=== PATIENT | female | born 1980 | race Two or more races ===

== ENCOUNTER 2020-11-11 20:06 | Emergency (ER) | payer SELFPAY ==
[~2020-11-11] VITALS: Ht 154.9 cm; Wt 81.6 kg
[2020-11-11 20:28] VITALS: BP 117/73
--- NOTE | 2020-11-11 20:28 | NUR ---
BIBSELF C/O RT BIG TOE PAIN X 2 DAYS. TOOK IBUPROFEN @1700 TO ER BED 9
[2020-11-11] MEDS ORDERED: SULF1TAB48 PO (21:02)
[2020-11-11] MEDS ORDERED: CEPH500T PO (21:02)
[2020-11-11] MEDS ORDERED: TERB250T52 PO (21:02)
[2020-11-11] MEDS ORDERED: IBUP-1955 PO (21:02)
== END 2020-11-11 21:12 | disposition home or self-care (01) ==
LOC: ER 20:06
DX: L60.0 Ingrowing nail (principal); B35.1 Tinea unguium; Z79.899 Other long term (current) drug therapy
CPT/HCPCS: 11730; 99284; A6403